=== PATIENT | male | born 1970 | race African-American/Black ===

== ENCOUNTER 2016-11-29 12:06 | Emergency (ER) | payer BC | END 2016-11-29 15:15 | disposition home or self-care (01) | LOC: D.ER 12:06 | DX: M54.30 Sciatica, unspecified side (principal); S39.012A Strain of muscle, fascia and tendon of lower back, initial encounter; X58.XXXA Exposure to other specified factors, initial encounter; Y93.89 Activity, other specified; Y92.89 Other specified places as the place of occurrence of the external cause; F17.200 Nicotine dependence, unspecified, uncomplicated ==